=== PATIENT | female | born 1985 ===

== ENCOUNTER 2017-04-30 20:57 | Emergency (ER) | payer OTHER ==
[2017-04-30 21:11] VITALS: BP 114/78; PULSE 64; RESP 18; TEMP 98.3; O2SAT 100
[2017-04-30] MEDS ORDERED: Epinephrine /Lidocaine HCL 1:100,000/2% 30 ml INJ ONE (21:35)
[2017-04-30] MEDS ORDERED: Lidocaine 2% w Epi 1:100,000 Inj IJ ONE (21:38)
--- NOTE | 2017-04-30 22:29 | C.PDOC ---
History Of Present Illness The patient reports that she hit a glass lamp and sustained a laceration to the right wrist 1 hour [employer]. Denies numbness or weakness. Time Seen by Provider: 04/30/17 21:30 Chief Complaint (Nursing): Finger,Hand,&Wrist History Per: Patient History/Exam Limitations: no limitations Current Symptoms Are (Timing): Still Present Past Medical History Reviewed: Historical Data, Nursing Documentation, Vital Signs Vital Signs: Last Vital Signs Temp 98.3 F 04/30/17 21:09 Pulse 64 04/30/17 21:09 Resp 18 04/30/17 21:09 BP 114/78 04/30/17 21:09 Pulse Ox 100 04/30/17 22:30 - Medical History PMH: No Chronic Diseases Surgical History: No Surg Hx Family History: States: No Known Family Hx - Social History Hx Alcohol Use: Yes Hx Substance Use: No - Immunization History Hx Tetanus Toxoid Vaccination: No Hx Influenza Vaccination: No Hx Pneumococcal Vaccination: No Review Of Systems Constitutional: Negative for: Fever, Chills Musculoskeletal: Negative for: Hand Pain Skin: Positive for: Other (laceration). Negative for: Bruising Neurological: Negative for: Weakness, Numbness Physical Exam - Physical Exam Appears: Well, No Acute Distress Skin: Normal Color, Warm, Other (3.5cm x 1cm laceration to the ulnar aspect of the right wrist) Head: Atraumatic, Normacephalic Eye(s): bilateral: Normal Inspection Oral Mucosa: Moist Extremity: Normal ROM, No Tenderness, Capillary Refill (< 2 sec), No Swelling Pulses: Left Radial: Normal, Right Radial: Normal Neurological/Psych: Oriented x3, Normal Motor, Normal Sensation Gait: Steady ED Course And Treatment O2 Sat by Pulse Oximetry: 100 (on RA) Pulse Ox Interpretation: Normal Procedure: Wound Repair - Time Performed Time Performed: 22:00 - Time Out Time Out: Side verified, Site verified - Procedure Procedure: Wound Repair: right wrist laceration - Consent Obtained Consent obtained: Verbal - Performed by Performed by: Mid-level Provider (Julius) - Indications Indication(s):: Laceration - Location Shape:: Curvilinear Dimensions Length cm: 3.5 Dimensions width cm: 1 Depth:: Epidermis - Anesthetic Technique Anesthetic Technique: Local Local/Regional Anesthetic:: Lidocaine 2% w/epi - Wound Examination Wound Examination:: Contaminated - Debris Debris:: Glass - Irrigated Irrigated with ml of normal saline: 100cc of irrigated pressure - Complexity Complexity:: Simple (one layer) - Wound repair method Sutures:: # (three), Size (3-0), Type (nylon+), Technique (Wound also closed with 4 karla and skin glue at the end) - Complications Complications: a piece of glass was removed from the wound - Patient tolerated procedure Patient Tolerated Procedure:: Well Medical Decision Making Medical Decision Making: Tetanus was administered. Wound was irrigated and glass removed. Disposition - Disposition Referrals: [facility] at [facility] [Outside] Disposition: HOME/ ROUTINE Disposition Time: 22:28 Condition: GOOD Additional Instructions: Keep the wound clean, dry, and covered. Wash twice a day with soap and water, and then apply bacitracin. Sutures and karla to be removed within 10-14 days. Return sooner if worsened. Prescriptions: Bacitracin Ointment [Bacitracin] 30 gm TOP BID #1 tube Instructions: Laceration (ED) Forms: [facility] (Chinese) - Clinical Impression Clinical Impression: Wrist laceration
[2017-04-30] MEDS ORDERED: Bacitracin 500 Units/gm Oint Foilpak UD TOP ONE (22:41)
[2017-04-30] MEDS ORDERED: Bacitracin 500 Units/gm Oint Foilpak UD ONE (22:45)
--- NOTE | 2017-05-01 08:22 | RAD ---
PROCEDURE: Right Wrist Radiographs. HISTORY: laceration to ulnar side of wrist, r/o FB COMPARISON: None. FINDINGS: BONES: Normal. No fracture. JOINTS: Normal. No dislocation. SOFT TISSUES: No evidence of radiopaque foreign body. There is soft tissue swelling seen at the medial aspect of the right wrist. OTHER FINDINGS: None. IMPRESSION: No evidence of acute fracture or dislocation. No evidence of radiopaque foreign body.
== END 2017-04-30 23:15 | disposition home or self-care (01) ==
LOC: C.ER 20:57
DX: S61.511A Laceration without foreign body of right wrist, initial encounter (principal); W25.XXXA Contact with sharp glass, initial encounter; Y93.89 Activity, other specified; Y92.89 Other specified places as the place of occurrence of the external cause; Z23 Encounter for immunization